=== PATIENT | male | born 1985 | race Hispanic/Latino ===

== ENCOUNTER 2025-07-28 04:28 | Inpatient (IN) | payer OTHER ==
[~2025-07-28] VITALS: Ht 170.2 cm; Wt 79.8 kg
[2025-07-28 04:49] LABS: IMMATURE GRANULOCYTE ABSOLUTE 0.07 K/uL (0-1); NUCLEATED RED BLOOD CELLS 0.0 % (0.0-0.19); PLATELET COUNT (AUTO) 290 K/uL (130-400); RED BLOOD CELL COUNT(AUTO) 5.22 MIL/uL (4.50-6.20); RED CELL DISTRIBUTION WIDTH 13.0 % (11.0-15.5); WHITE BLOOD COUNT (AUTO) 16.5 K/uL (4.8-10.8)
[2025-07-28] MEDS: 0.9%NACL 1000ML 1,000 ML IV SCH (04:51)
--- NOTE | 2025-07-28 04:54 | ERN ---
General Chief Complaint: Abdominal Pain Stated Complaint: ABDOMINAL PAIN S/P SURGERY Time Seen by MD: 04:30 History of Present Illness Initial Comments 40-year-old male history of hypertension, recent hernia repair here for evaluation of abdominal pain. Patient states that he was recently discharged from a leg travel total yesterday at 1:00 p.m.. He drove all the way to the [facility] and noted that he was having worsening abdominal pain for which he has been taking hydrocodone with a minimal relief of symptoms. Allergies: Coded Allergies: No Known Drug Allergies (Unverified Allergy, Unknown, 07/28/25) Past Medical History Past Medical History: High Cholesterol, Hypertension Past Surgical History: None Gastrointestinal/Abdominal: (+) abdominal pain Review of Systems: was completed, & the rest were negative. Physical Exam General Appearance: (+) no apparent distress Orientation: (+) alert, (+) oriented x 3 Eye: bilateral eye normal inspection, bilateral eye PERRL, bilateral eye EOMI Ear, Nose, Throat: (+) hearing grossly normal, (+) normal ENT inspection, (+) moist mucous membraine Neck: (+) normal inspection, (+) supple Respiratory: (+) chest non-tender, (+) lungs clear, (+) well ventilated Heart: (+) regular; (-) murmur Gastrointestinal: (+) soft, (+) distended, (+) tender Results Laboratory and Microbiology Lab and Micro Result Laboratory Tests Test 07/28/25 04:43 07/28/25 05:30 White Blood Count 16.5 K/uL (4.8-10.8) H Red Blood Count 5.22 MIL/uL (4.50-6.20) Hemoglobin 15.0 g/dL (14.0-18.0) Hematocrit 45.4 % (42-54) Mean Corpuscular Volume 87.0 fL (79-99) Mean Corpuscular Hemoglobin 28.7 pg (27.0-33.0) Mean Corpuscular Hemoglobin Concent 33.0 g/dL (32.0-36.0) Red Cell Distribution Width 13.0 % (11.0-15.5) Platelet Count 290 K/uL (130-400) Mean Platelet Volume 9.3 fL (7.5-10.5) Immature Granulocyte % (Auto) 0.4 % (0-1) Neutrophils (%) (Auto) 77.4 % (40.0-77.0) H Lymphocytes (%) (Auto) 12.2 % (21.0-51.0) L Monocytes (%) (Auto) 9.0 % (3.0-13.0) Eosinophils (%) (Auto) 0.7 % (0.0-8.0) Basophils (%) (Auto) 0.3 % (0.0-5.0) Neutrophils # (Auto) 12.8 K/uL (1.8-7.7) H Lymphocytes # (Auto) 2.0 K/uL (1.0-4.8) Monocytes # (Auto) 1.5 K/uL (0.1-1.0) H Eosinophils # (Auto) 0.11 K/uL (0.00-0.70) Basophils # (Auto) 0.05 K/uL (0.00-0.20) Absolute Immature Granulocyte (auto 0.07 K/uL (0-1) Nucleated Red Blood Cells 0.0 % (0.0-0.19) Sodium Level 137 mmol/L (136-145) Potassium Level 3.6 mmol/L (3.5-5.1) Chloride Level 98 mmol/L (101-111) L Carbon Dioxide Level 29 mmol/L (21-32) Blood Urea Nitrogen 7 mg/dL (7-18) Creatinine 0.9 mg/dL (0.5-1.3) Glomerular Filtration Rate Calc 111 mL/min (>90) Random Glucose 107 mg/dL (70-105) H Lactic Acid Level 1.3 mmol/L (0.8-2.5) Total Calcium 8.8 mg/dL (8.5-10.1) Total Bilirubin 0.6 mg/dL (0.2-1.0) Direct Bilirubin 0.1 mg/dL (0.0-0.3) Aspartate Amino Transf (AST/SGOT) 19 U/L (10-37) Alanine Aminotransferase (ALT/SGPT) 22 U/L (12-78) Alkaline Phosphatase 80 U/L (50-136) Total Creatine Kinase 220 U/L (21-232) # Total Protein 7.6 g/dL (6.0-8.3) Albumin 4.0 g/dL (3.5-5.0) Lipase 33 U/L (16-77) Serum Alcohol < 3 mg/dL (0-10) Urine Color COLORLESS (YELLOW) Urine Appearance CLEAR (CLEAR) Urine pH 6.5 (5.0-8.0) Urine Specific [place] 1.008 (1.001-1.031) Urine Protein NEGATIVE mg/dL (NEGATIVE) Urine Glucose (UA) NEGATIVE mg/dL (NEGATIVE) Urine Ketones NEGATIVE mg/dL (NEGATIVE) Urine Occult Blood NEGATIVE (NEGATIVE) Urine Nitrate NEGATIVE (NEGATIVE) Urine Bilirubin NEGATIVE mg/dL (NEGATIVE) Urine Urobilinogen 0.2 mg/dL (0.2-1.0) Urine Leukocyte Esterase NEGATIVE Jhoan/uL Labs Reviewed?: Yes EKG/XRAY/US/CT/MRI CT Scan Comment [place] [id number] [id number] IMAGING REPORT Signed PATIENT: JONATAN SAXENA MR#: [id number] : 1985 SEX: M AGE: 40 LOCATION: [facility] ORDER 4 STATUS: [facility] REPORT#: [id number] SERVICE 2 REASON: dc'd at outside hospital s/p 'hernia removal'. Exxtreme abd pain ORDERING PHYSICIAN: PETER URENA MD PROCEDURE: ABD PEL W - CT ABDOMEN/PELVIS W/CONTRAST EXAM: CT Abdomen and Pelvis with IV contrast CLINICAL HISTORY: Discharged from outside hospital status post hernia removal with extreme abdominal pain. TECHNIQUE: Axial computed tomography images of the abdomen and pelvis with intravenous contrast. CONTRAST: with intravenous contrast. COMPARISON: None provided. FINDINGS: LUNG BASES: The lung bases appear clear. No pleural effusions are seen. LIVER: Unremarkable except for mild fatty infiltration of the liver. GALLBLADDER AND BILE DUCTS: The gallbladder appears within normal limits. No radioopaque gallstones are seen. No biliary ductal dilatation is evident. PANCREAS: Unremarkable. SPLEEN: Unremarkable. ADRENAL GLANDS: Unremarkable. KIDNEYS, URETERS, AND BLADDER: Few bilateral renal cysts, the largest measuring 0.8 cm at the upper pole of the right kidney and 0.5 cm at the upper pole of the left kidney. There is no hydronephrosis or hydroureter. No urinary calculi are seen. STOMACH AND BOWEL: The ascending colon and transverse colon are dilated with a maximum diameter of approximately 7 cm. No evidence of any distal obstruction noted. No evidence of bowel obstruction. No evidence suggesting enteritis or colitis. APPENDIX: No evidence of acute appendicitis on CT examination. PERITONEUM: No free fluid. No free air. LYMPH NODES: No lymphadenopathy is evident. REPRODUCTIVE: Unremarkable as visualized. VASCULATURE: No evidence of abdominal aortic aneurysm. BONES: No aggressive appearing osseous lesion. No acute osseous pathology evident. INGUINAL CANAL: Mild fat inflammation and multiple tiny air foci in the right inguinal canal are consistent with postoperative changes. IMPRESSION: Dilated ascending and transverse colon measuring up to 7 cm without evidence of distal obstruction. Probably secondary to ileus. Mild fat inflammation and multiple tiny air foci in the right inguinal canal are consistent with postoperative changes. A few bilateral renal cysts, the largest 0.8 cm at the upper pole of the right kidney. /[place] DICTATED BY: BARBIE PINEDA Jr., MD DATE: 07/28/25754 ELECTRONICALLY SIGNED BY: BARBIE PINEDA Jr., MD DATE: 07/28/25754 [facility] MDM: Differential diagnosis: Ileus , abdominal pain Rationale: Tests considered and ordered secondary to shared decision making include: Previous outside records reviewed: Old ER visits. Risk of complication and/or morbidity or mortality of patient management: None Medications-Per medication reconciliation Need for hospitalization: Patient does meet criteria for hospitalization. Need for emergency major/minor surgery: No There are no social concerns with this patient. Prescription drug management Prescriptions will include symptomatic care Patient's prior external medical records from other ER visits were reviewed by me as indicated. Prior testing and results from previous visits were reviewed. Prior tests were taken into account with medical decision making and resource utilization, independent historian/historians were used to obtain complete medical history. I independently interpreted the test that were performed, results were reviewed by me and considered findings on radiology if ordered. Medical management and examination interpretation discussions were had by me with other qualified healthcare professionals as indicated for the patient's care. . Patient will be admitted under the care of hospitalist group ED Course Orders Procedure Category Date Status Time Ct Abdomen/Pelvis CT 07/28/25 Resulted W/Contrast 04:33 Basic Metabolic Panel LAB 07/28/25 Complete 04:33 Cbc With Differential LAB 07/28/25 Complete 04:33 Creatine Kinase, Total LAB 07/28/25 Complete 04:33 Hepatic Function Panel LAB 07/28/25 Complete 04:33 Lactic Acid LAB 07/28/25 Complete 04:33 0.9%Nacl 1000ml (Ns PHA 07/28/25 Complete 1000ml) 05:00 Morphine 4mg Syg PHA 07/28/25 Complete (Morphine 4mg Syg) 05:00 Urinalysis Profile LAB 07/28/25 Complete 05:32 Lipase LAB 07/28/25 Complete 06:46 Alcohol, Blood LAB 07/28/25 Complete 06:46 Current Medications Medications (Trade) Dose Ordered Sig/Reyna Route PRN Reason Start Time Stop Time Status Last Admin Dose Admin Morphine Sulfate (morPHINE 4MG SYG) 4 mg ONCE ONCE IVP 07/28/25 05:00 07/28/25 05:01 DC 07/28/25 04:51 Sodium Chloride 1,000 ml @ 0 mls/hr Q0M IV 07/28/25 05:00 07/28/25 06:35 DC 07/28/25 04:51 Vital Signs Date Time Temp Pulse Resp B/P (MAP) Pulse Ox O2 Delivery O2 Flow Rate FiO2 07/28/25 07:04 73 18 123/69 100 Room Air* 0 07/28/25 06:29 77 18 157/102 100 Room Air* 0 07/28/25 04:54 99 19 124/83 98 Room Air* 0 07/28/25 04:30 98.1 100 20 130/91 100 Room Air 0 DX & DISP Disposition: Inpatient Decision to Admit Time: 07:32 Departure Impression: Primary Impression: Ileus following gastrointestinal surgery Condition: Stable Referrals: SELF,REFERRAL (PCP) PETER URENA MD Jul 28, 2025 04:54 OSIRIS SMITH MD Jul 28, 2025 07:19
[2025-07-28 05:01] LABS: CREATININE 0.9 mg/dL (0.5-1.3); GLOMERULAR FILTR. RATE CALC 111.0 mL/min (>90); GLUCOSE,RANDOM 107.0 mg/dL (70-105); SODIUM SERUM 137.0 mmol/L (136-145); UREA NITROGEN, BLOOD 7.0 mg/dL (7-18)
[2025-07-28 05:05] LABS: ASPARTATE AMINOTRANSFERASE 19.0 U/L (10-37); CREATINE KINASE, TOTAL 220.0 U/L (21-232); TOTAL PROTEIN, SERUM 7.6 g/dL (6.0-8.3)
[2025-07-28 05:37] LABS: APPEARANCE,URINE CLEAR (CLEAR); GLUCOSE, URINE (UA) NEGATIVE (NEGATIVE); LEUKOCYTE ESTERASE ,URINE NEGATIVE Leu/uL (NEGATIVE); NITRATE,URINE NEGATIVE (NEGATIVE); OCCULT BLOOD,URINE NEGATIVE (NEGATIVE)
[2025-07-28 05:47] LABS: ADD UA MICROSCOPIC NO
--- NOTE | 2025-07-28 06:56 | HMCIMG ---
EXAM: CT Abdomen and Pelvis with IV contrast CLINICAL HISTORY: Discharged from outside hospital status post hernia removal with extreme abdominal pain. TECHNIQUE: Axial computed tomography images of the abdomen and pelvis with intravenous contrast. CONTRAST: with intravenous contrast. COMPARISON: None provided. FINDINGS: LUNG BASES: The lung bases appear clear. No pleural effusions are seen. LIVER: Unremarkable except for mild fatty infiltration of the liver. GALLBLADDER AND BILE DUCTS: The gallbladder appears within normal limits. No radioopaque gallstones are seen. No biliary ductal dilatation is evident. PANCREAS: Unremarkable. SPLEEN: Unremarkable. ADRENAL GLANDS: Unremarkable. KIDNEYS, URETERS, AND BLADDER: Few bilateral renal cysts, the largest measuring 0.8 cm at the upper pole of the right kidney and 0.5 cm at the upper pole of the left kidney. There is no hydronephrosis or hydroureter. No urinary calculi are seen. STOMACH AND BOWEL: The ascending colon and transverse colon are dilated with a maximum diameter of approximately 7 cm. No evidence of any distal obstruction noted. No evidence of bowel obstruction. No evidence suggesting enteritis or colitis. APPENDIX: No evidence of acute appendicitis on CT examination. PERITONEUM: No free fluid. No free air. LYMPH NODES: No lymphadenopathy is evident. REPRODUCTIVE: Unremarkable as visualized. VASCULATURE: No evidence of abdominal aortic aneurysm. BONES: No aggressive appearing osseous lesion. No acute osseous pathology evident. INGUINAL CANAL: Mild fat inflammation and multiple tiny air foci in the right inguinal canal are consistent with postoperative changes. IMPRESSION: Dilated ascending and transverse colon measuring up to 7 cm without evidence of distal obstruction. Probably secondary to ileus. Mild fat inflammation and multiple tiny air foci in the right inguinal canal are consistent with postoperative changes. A few bilateral renal cysts, the largest 0.8 cm at the upper pole of the right kidney. /[place]
[2025-07-28 07:07] LABS: ALCOHOL, BLOOD < 3 mg/dL (0-10)
--- NOTE | 2025-07-28 07:20 | NUR ---
ASSUMED CARED AT THIS TIME
[2025-07-28] MEDS: LACTATED RINGERS 1000ML 1,000 ML IV ONE (08:15)
[2025-07-28] MEDS: ZOSYN 3.375GM +NS 50ML IV SCH (09:05)
[2025-07-28] MEDS: LACTATED RINGERS 1000ML 1,000 ML IV SCH (09:05)
--- NOTE | 2025-07-28 09:09 | HP ---
[facility] HISTORY AND PHYSICAL Date of Service: Jul 28, 2025 Time of Service: 08:57 HISTORY OF PRESENT ILLNESS: [40-year-old male with a history of hypertension and hyperlipidemia, presenting with worsening abdominal pain following recent right inguinal hernia repair (discharged from outside hospital yesterday at 1:00 p.m.). He reports progressive abdominal pain during a long car ride home, minimally relieved by hydrocodone. No associated nausea, vomiting, or changes in bowel habits reported at presentation. ] ED Course: Received 1L IV fluids (LR) Analgesia: Dilaudid 0.5 mg x2, Morphine 4 mg x1, with some improvement in pain Labs and imaging as above Referred to hospitalist for further evaluation and management. REVIEW OF SYSTEMS CONSTITUTIONAL: Denies fevers, chills, or night sweats. No unintentional weight loss reported. NEUROLOGICAL: Denies headache, amaurosis fugax, motor weakness, sensory deficit, vertigo/spinning sensation, gait abnormalities, or tremors. ENT: No hearing loss, otalgia, otorrhea, rhinitis, rhinorrhea, hoarseness, or sore throat. CARDIOVASCULAR: Denies any exertional angina, dyspnea on exertion, orthopnea, paroxysmal nocturnal dyspnea, palpitations, life-threatening arrhythmias, claudication. PULMONARY: Denies any shortness of breath, cough, phlegm/sputum, hemoptysis, pleuritic chest pain. SLEEP: Denies morning headaches, daytime somnolence or napping. Denies difficulty falling asleep, staying asleep, waking from sleep. Denies knowledge of snoring. GASTROINTESTINAL: Positive for abdominal pain; no nausea, vomiting, diarrhea, or constipation reported GENITOURINARY: Denies frequency, urgency, nocturia, hematuria or incontinence (Storage/Irritative symptoms.) Low urinary stream, straining to void, urinary intermittency or hesitancy, splitting of the voiding stream, terminal dribbling. ENDOCRINOLOGIC: Denies polyuria, polydipsia, polyphagia or heat/cold intolerances. HEMATOLOGIC: Denies thrombophilia/previous clots, or coagulopathy/bleeding disorders. ONCOLOGIC: Denies personal history of malignancy. DERMATOLOGIC: Denies rashes or pruritus. PSYCHIATRIC: Denies any suicidal or homicidal ideation. Denies hallucinations. PAST MEDICAL HISTORY: [Hypertension Hyperlipidemia ] PAST SURGICAL HISTORY: [Recent right inguinal hernia repair ] PAST SOCIAL HISTORY: [Lives in [facility], only in [place] to visit his parents. Denies tobacco etoh, and illicit drug use ] FAMILY HISTORY: [Noncontributory ] Coded Allergies: No Known Drug Allergies (Unverified Allergy, Unknown, 07/28/25) PHYSICAL EXAM GENERAL APPEARANCE: No acute distress, alert, oriented x3 NEUROLOGICAL: Cranial nerves II-XII grossly intact. Motor is 5/5 in bilateral upper and lower extremities proximal to distal. No sensory deficits. HEENT: Face is symmetric. Pupils are equal and reactive. Extraocular movements are intact. NECK: Supple. No JVD. No thyromegaly. No submental, submandibular, pre- /postauricular, occipital or supraclavicular lymphadenopathy. CHEST: Normal chest expansion. No Telemetry. LUNGS: Absence of any rales, rhonchi or any wheezing. CARDIOVASCULAR: Regular. S1 and S2 normal. No appreciable rubs, murmurs or gallops. ABDOMEN: Soft, distended, tender; no peritoneal signs : Deferred. No Taylor. EXTREMITIES: Non-edematous and not cyanotic. No clubbing. Good capillary refill. SKIN: No skin breakdown. Vital Sign (Last 24 Hours) 07/28/25 07/28/25 04:30 07:04 Temp 98.1 Pulse 73 Resp 18 B/P (MAP) 123/69 Pulse Ox 100 O2 Delivery Room Air* O2 Flow Rate 0 FiO2 21 LABS: Laboratory: Test 07/28/25 05:30 07/28/25 04:43 Range/Units Urine Color COLORLESS YELLOW Urine Appearance CLEAR CLEAR Urine pH 6.5 5.0-8.0 Urine Specific [place] 1.008 1.001-1.031 Urine Protein NEGATIVE NEGATIVE mg/dL Urine Glucose (UA) NEGATIVE NEGATIVE mg/dL Urine Ketones NEGATIVE NEGATIVE mg/dL Urine Occult Blood NEGATIVE NEGATIVE Urine Nitrate NEGATIVE NEGATIVE Urine Bilirubin NEGATIVE NEGATIVE mg/dL Urine Urobilinogen 0.2 0.2-1.0 mg/dL Urine Leukocyte Esterase NEGATIVE NEGATIVE Jhoan/uL White Blood Count 16.5 H 4.8-10.8 K/uL Red Blood Count 5.22 4.50-6.20 MIL/uL Hemoglobin 15.0 14.0-18.0 g/dL Hematocrit 45.4 42-54 % Mean Corpuscular Volume 87.0 79-99 fL Mean Corpuscular Hemoglobin 28.7 27.0-33.0 pg Mean Corpuscular Hemoglobin Concent 33.0 32.0-36.0 g/dL Red Cell Distribution Width 13.0 11.0-15.5 % Platelet Count 290 130-400 K/uL Mean Platelet Volume 9.3 7.5-10.5 fL Immature Granulocyte % (Auto) 0.4 0-1 % Neutrophils (%) (Auto) 77.4 H 40.0-77.0 % Lymphocytes (%) (Auto) 12.2 L 21.0-51.0 % Monocytes (%) (Auto) 9.0 3.0-13.0 % Eosinophils (%) (Auto) 0.7 0.0-8.0 % Basophils (%) (Auto) 0.3 0.0-5.0 % Neutrophils # (Auto) 12.8 H 1.8-7.7 K/uL Lymphocytes # (Auto) 2.0 1.0-4.8 K/uL Monocytes # (Auto) 1.5 H 0.1-1.0 K/uL Eosinophils # (Auto) 0.11 0.00-0.70 K/uL Basophils # (Auto) 0.05 0.00-0.20 K/uL Absolute Immature Granulocyte (auto 0.07 0-1 K/uL Nucleated Red Blood Cells 0.0 0.0-0.19 % Sodium Level 137 136-145 mmol/L Potassium Level 3.6 3.5-5.1 mmol/L Chloride Level 98 L 101-111 mmol/L Carbon Dioxide Level 29 21-32 mmol/L Blood Urea Nitrogen 7 7-18 mg/dL Creatinine 0.9 0.5-1.3 mg/dL Glomerular Filtration Rate Calc 111 >90 mL/min Random Glucose 107 H 70-105 mg/dL Lactic Acid Level 1.3 0.8-2.5 mmol/L Total Calcium 8.8 8.5-10.1 mg/dL Total Bilirubin 0.6 0.2-1.0 mg/dL Direct Bilirubin 0.1 0.0-0.3 mg/dL Aspartate Amino Transf (AST/SGOT) 19 10-37 U/L Alanine Aminotransferase (ALT/SGPT) 22 12-78 U/L Alkaline Phosphatase 80 50-136 U/L Total Creatine Kinase 220 # 21-232 U/L Total Protein 7.6 6.0-8.3 g/dL Albumin 4.0 3.5-5.0 g/dL Lipase 33 16-77 U/L Serum Alcohol < 3 0-10 mg/dL Current Medications Medications (Trade) Dose Ordered Sig/Reyna Route PRN Reason Start Time Stop Time Status Last Admin Dose Admin Acetaminophen (Tylenol 325mg Suppository) 325 mg Q4H PRN RC TEMPERATURE GREATER THAN 101.5 07/28/25 09:00 08/27/25 08:59 UNV Acetaminophen (Tylenol 325mg Suppository) 325 mg Q6H PRN RC MILD PAIN (1-3) 07/28/25 09:00 08/27/25 08:59 UNV Ketorolac Tromethamine (toRADol) 15 mg Q6H PRN IV MODERATE PAIN (4-6) 07/28/25 09:00 08/02/25 08:59 UNV Lactated Ringer's 1,000 ml @ 100 mls/hr Q10H IV 07/28/25 09:00 08/27/25 08:59 UNV Morphine Sulfate (morPHINE 2MG SYG) 2 mg Q4H PRN IVP SEVERE PAIN (7-10) 07/28/25 09:00 08/04/25 08:59 UNV Ondansetron HCl (zoFRAN 4MG INJ) 4 mg Q6H PRN IVP NAUSEA/VOMITING 07/28/25 09:00 08/27/25 08:59 UNV Piperacillin Sod/ Tazobactam Sod (Zosyn 3.375gm+NS 50ml) 3.375 gm Q8H IV 07/28/25 09:00 08/07/25 08:59 UNV Sodium Chloride 1,000 ml @ 0 mls/hr Q0M IV 07/28/25 05:00 07/28/25 06:35 DC 07/28/25 04:51 300 MLS/HR DIAGNOSTICS / RADIOLOGY: [ CT Abdomen/Pelvis with IV contrast: Dilated ascending and transverse colon up to 7 cm, no evidence of distal obstructionfindings consistent with ileus. Mild fat stranding and tiny air foci in right inguinal canalpostoperative changes. No free air or fluid, no evidence of bowel perforation or abscess. Few small bilateral renal cysts. ] ASSESSMENT: [40-year-old male, s/p recent right inguinal hernia repair, presenting with acute abdominal pain and distension. Imaging reveals significant colonic dilation (up to 7 cm) without evidence of mechanical obstruction, consistent with postoperative ileus. No evidence of perforation, abscess, or ischemia. Leukocytosis with left shift, but no lactic acidosis. Mild postoperative inflammatory changes in the right inguinal canal. Problem list: Postoperative ileus, POA Intractable abdominal pain, POA Leukocytosis with left shift, POA Recent right inguinal hernia repair (postoperative state), POA Hypertension Hyperlipidemia Mild fatty liver by CT a/p, POA Bilateral renal cysts by CT A/P POA Mild hypochloremia Mild hyperglycemia ] PLAN: [Admit for monitoring and supportive management of postoperative ileus NPO, IV fluids, electrolyte repletion as needed Serial abdominal exams and monitoring for signs of worsening obstruction or perforation Pain control (avoid excessive opioids if possible) Early mobilization as tolerated Monitor labs, including WBC and electrolytes Surgical consult if clinical deterioration or concern for mechanical obstruction/perforation (we will also reach out to patient's surgeon from out of state) Continue home antihypertensives as appropriate Update social history and medication reconciliation on admission ] Supportive care: GI and DVT prophylaxis, daily labs KUB tomorrow morning Full code Case discussed with Dr. Debbie gallardo, above plan was formulated ADVANCED CARE PLANNING 1. Which of the following were discussed? Hospice Care - Yes / No Therapeutic options - Yes / No Advance Directives - Yes / No Other discussions - 2. Discussed with who? Patient 3. Voluntary nature of this service was explained to the patient? Yes / No 4. Amount of time spent - __20 mins 5. Reviewed by Physician? (if this service was performed by NPP) Yes / No ATTESTATION BY PHYSICIAN I have seen and examined the patient. I reviewed the documentation, medical decision making, and treatment plan as noted by the mid-level provider above. I agree with the findings and plan of care. FLORINA HART MD, JANICE B [facility] Jul 28, 2025 09:09
[2025-07-28 10:30] VITALS: BP 133/89; PULSE 72; RESP 21; TEMP 97.7
[2025-07-28 16:00] VITALS: BP 137/74; PULSE 67; RESP 17; TEMP 97.9
[2025-07-28 16:17] VITALS: O2SAT 100
[2025-07-28 20:18] VITALS: BP 134/97; PULSE 68; RESP 18; TEMP 97.3
[2025-07-29 00:18] VITALS: BP 131/80; PULSE 62; RESP 18; TEMP 98.7
[2025-07-29 04:15] VITALS: BP 131/82; PULSE 60; RESP 18; TEMP 97.8
[2025-07-29 04:26] LABS: NUCLEATED RED BLOOD CELLS 0.0 % (0.0-0.19); PLATELET COUNT (AUTO) 303.0 K/uL (130-400); RED BLOOD CELL COUNT(AUTO) 5.17 MIL/uL (4.50-6.20); RED CELL DISTRIBUTION WIDTH 13.0 % (11.0-15.5); WHITE BLOOD COUNT (AUTO) 8.7 K/uL (4.8-10.8)
[2025-07-29 04:46] LABS: ASPARTATE AMINOTRANSFERASE 14.0 U/L (10-37); CREATININE 0.9 mg/dL (0.5-1.3); GLOMERULAR FILTR. RATE CALC 111.0 mL/min (>90); GLUCOSE,RANDOM 93.0 mg/dL (70-105); SODIUM SERUM 140.0 mmol/L (136-145); TOTAL PROTEIN, SERUM 7.4 g/dL (6.0-8.3); UREA NITROGEN, BLOOD 11.0 mg/dL (7-18)
[2025-07-29 08:00] VITALS: BP 131/85; PULSE 65; RESP 21; TEMP 97.8; O2SAT 100
--- NOTE | 2025-07-29 11:03 | NUR ---
PT. STATES "I HAVEN'T EATEN, I WANT TO LEAVE HERE AND GO BACK TO [place]". INFORMED PATIENT THAT HE IS ABLE TO LEAVE, HOWEVER, THAT IT WOULD BE CONSIDERED AGAINST MEDICAL ADVICE, VERBALIZED UNDERSTANDING. PT'S FAMILY ASKED TO SPEAK WITH CHARGE NURSE. INFORMED BRUNO JAY.
[2025-07-29 12:00] VITALS: BP 127/88; PULSE 64; RESP 19; TEMP 98.1
--- NOTE | 2025-07-29 14:33 | PN ---
[facility] PROGRESS NOTE Date of Service: Jul 29, 2025 Time of Service: 14:28 SUBJECTIVE: [This is a 40-year-old male, postoperative day 5-6 from right inguinal hernia repair, presenting with acute postoperative ileus and intractable abdominal pain. He is hemodynamically stable, with imaging and labs consistent with ileus and no evidence of mechanical obstruction, perforation, or sepsis. Management is supportive with NPO, IV fluids, electrolyte monitoring, pain control, early mobilization, and serial exams. Surgical input is being obtained. Continue to monitor closely for clinical changes. ] REVIEW OF SYSTEMS CONSTITUTIONAL: Denies fevers, chills, or night sweats. No unintentional weight loss reported. NEUROLOGICAL: Denies headache, amaurosis fugax, motor weakness, sensory deficit, vertigo/spinning sensation, gait abnormalities, or tremors. ENT: No hearing loss, otalgia, otorrhea, rhinitis, rhinorrhea, hoarseness, or sore throat. CARDIOVASCULAR: Denies any exertional angina, dyspnea on exertion, orthopnea, paroxysmal nocturnal dyspnea, palpitations, life-threatening arrhythmias, claudication. PULMONARY: Denies any shortness of breath, cough, phlegm/sputum, hemoptysis, pleuritic chest pain. SLEEP: Denies morning headaches, daytime somnolence or napping. Denies difficulty falling asleep, staying asleep, waking from sleep. Denies knowledge of snoring. GASTROINTESTINAL: Positive for abdominal pain; no nausea, vomiting, diarrhea, or constipation reported GENITOURINARY: Denies frequency, urgency, nocturia, hematuria or incontinence (Storage/Irritative symptoms.) Low urinary stream, straining to void, urinary intermittency or hesitancy, splitting of the voiding stream, terminal dribbling. ENDOCRINOLOGIC: Denies polyuria, polydipsia, polyphagia or heat/cold intolerances. HEMATOLOGIC: Denies thrombophilia/previous clots, or coagulopathy/bleeding disorders. ONCOLOGIC: Denies personal history of malignancy. DERMATOLOGIC: Denies rashes or pruritus. PSYCHIATRIC: Denies any suicidal or homicidal ideation. Denies hallucinations. PHYSICAL EXAM GENERAL APPEARANCE: No acute distress, alert, oriented x3 NEUROLOGICAL: Cranial nerves II-XII grossly intact. Motor is 5/5 in bilateral upper and lower extremities proximal to distal. No sensory deficits. HEENT: Face is symmetric. Pupils are equal and reactive. Extraocular movements are intact. NECK: Supple. No JVD. No thyromegaly. No submental, submandibular, pre- /postauricular, occipital or supraclavicular lymphadenopathy. CHEST: Normal chest expansion. No Telemetry. LUNGS: Absence of any rales, rhonchi or any wheezing. CARDIOVASCULAR: Regular. S1 and S2 normal. No appreciable rubs, murmurs or gallops. ABDOMEN: Soft, distended, tender; no peritoneal signs : Deferred. No Taylor. EXTREMITIES: Non-edematous and not cyanotic. No clubbing. Good capillary refill. SKIN: No skin breakdown. Vital Signs (last 8hr) Date Time Temp Pulse Resp B/P (MAP) Pulse Ox O2 Delivery O2 Flow Rate FiO2 07/29/25 12:00 98.1 64 19 127/88 96 Room Air 07/29/25 08:00 97.9 65 21 131/85 100 Room Air LABS: Laboratory: Test 07/29/25 04:17 07/28/25 20:48 07/28/25 05:30 07/28/25 04:43 Range/Units White Blood Count 8.7 # 4.8-10.8 K/uL Red Blood Count 5.17 4.50-6.20 MIL/uL Hemoglobin 15.0 14.0-18.0 g/dL Hematocrit 45.0 42-54 % Mean Corpuscular Volume 87.0 79-99 fL Mean Corpuscular Hemoglobin 29.0 27.0-33.0 pg Mean Corpuscular Hemoglobin Concent 33.3 32.0-36.0 g/dL Red Cell Distribution Width 13.0 11.0-15.5 % Platelet Count 303 130-400 K/uL Mean Platelet Volume 9.5 7.5-10.5 fL Nucleated Red Blood Cells 0.0 0.0-0.19 % Sodium Level 140 136-145 mmol/L Potassium Level 4.0 3.5-5.1 mmol/L Chloride Level 103 101-111 mmol/L Carbon Dioxide Level 29 21-32 mmol/L Blood Urea Nitrogen 11 7-18 mg/dL Creatinine 0.9 0.5-1.3 mg/dL Glomerular Filtration Rate Calc 111 >90 mL/min Random Glucose 93 70-105 mg/dL Total Calcium 9.0 8.5-10.1 mg/dL Magnesium Level 2.20 1.80-2.40 mg/dL Total Bilirubin 1.0 # 0.2-1.0 mg/dL Aspartate Amino Transf (AST/SGOT) 14 10-37 U/L Alanine Aminotransferase (ALT/SGPT) 19 12-78 U/L Alkaline Phosphatase 74 50-136 U/L Total Protein 7.4 6.0-8.3 g/dL Albumin 3.3 L 3.5-5.0 g/dL Whole Blood Glucose 96 70-110 MG/DL Urine Color COLORLESS YELLOW Urine Appearance CLEAR CLEAR Urine pH 6.5 5.0-8.0 Urine Specific [place] 1.008 1.001-1.031 Urine Protein NEGATIVE NEGATIVE mg/dL Urine Glucose (UA) NEGATIVE NEGATIVE mg/dL Urine Ketones NEGATIVE NEGATIVE mg/dL Urine Occult Blood NEGATIVE NEGATIVE Urine Nitrate NEGATIVE NEGATIVE Urine Bilirubin NEGATIVE NEGATIVE mg/dL Urine Urobilinogen 0.2 0.2-1.0 mg/dL Urine Leukocyte Esterase NEGATIVE NEGATIVE Jhoan/uL Immature Granulocyte % (Auto) 0.4 0-1 % Neutrophils (%) (Auto) 77.4 H 40.0-77.0 % Lymphocytes (%) (Auto) 12.2 L 21.0-51.0 % Monocytes (%) (Auto) 9.0 3.0-13.0 % Eosinophils (%) (Auto) 0.7 0.0-8.0 % Basophils (%) (Auto) 0.3 0.0-5.0 % Neutrophils # (Auto) 12.8 H 1.8-7.7 K/uL Lymphocytes # (Auto) 2.0 1.0-4.8 K/uL Monocytes # (Auto) 1.5 H 0.1-1.0 K/uL Eosinophils # (Auto) 0.11 0.00-0.70 K/uL Basophils # (Auto) 0.05 0.00-0.20 K/uL Absolute Immature Granulocyte (auto 0.07 0-1 K/uL Lactic Acid Level 1.3 0.8-2.5 mmol/L Direct Bilirubin 0.1 0.0-0.3 mg/dL Total Creatine Kinase 220 # 21-232 U/L Lipase 33 16-77 U/L Serum Alcohol < 3 0-10 mg/dL Current Medications Medications (Trade) Dose Ordered Sig/Reyna Route PRN Reason Start Time Stop Time Status Last Admin Dose Admin Acetaminophen (Tylenol 325mg Suppository) 325 mg Q4H PRN RC TEMPERATURE GREATER THAN 101.5 07/28/25 09:00 08/27/25 08:59 Acetaminophen (Tylenol 325mg Suppository) 325 mg Q6H PRN RC MILD PAIN (1-3) 07/28/25 09:00 08/27/25 08:59 Hydralazine HCl (APRESOLine 20MG INJ) 10 mg Q6H PRN IV ADMINISTER FOR SBP > 160 07/28/25 09:30 08/27/25 09:29 Ketorolac Tromethamine (toRADol) 15 mg Q6H PRN IV MODERATE PAIN (4-6) 07/28/25 09:00 08/02/25 08:59 07/29/25 02:25 15 MG Lactated Ringer's 1,000 ml @ 100 mls/hr Q10H IV 07/28/25 09:00 08/27/25 08:59 07/29/25 06:37 100 MLS/HR Morphine Sulfate (morPHINE 2MG SYG) 2 mg Q4H PRN IVP SEVERE PAIN (7-10) 07/28/25 09:00 08/04/25 08:59 07/29/25 08:25 2 MG Ondansetron HCl (zoFRAN 4MG INJ) 4 mg Q6H PRN IVP NAUSEA/VOMITING 07/28/25 09:00 08/27/25 08:59 07/28/25 11:44 4 MG Piperacillin Sod/ Tazobactam Sod (Zosyn 3.375gm+NS 50ml) 3.375 gm Q8H IV 07/28/25 09:00 08/07/25 08:59 07/29/25 08:25 3.375 GM Sodium Chloride 1,000 ml @ 0 mls/hr Q0M IV 07/28/25 05:00 07/28/25 06:35 DC 07/28/25 04:51 300 MLS/HR DIAGNOSTICS / RADIOLOGY: [ ] ASSESSMENT: [Assessment 1. Postoperative Ileus (POA): - The patient is a 40-year-old male, s/p right inguinal hernia repair, presenting with acute abdominal pain and distension. - CT A/P shows significant colonic dilation (up to 7 cm) without evidence of mechanical obstruction, perforation, or abscessfindings consistent with postoperative ileus. - No lactic acidosis, but notable leukocytosis with left shift (WBC 16.5, neutrophils 77.4%, absolute neutrophils 12.8). - Mild postoperative inflammatory changes in the right inguinal canal, likely expected post-surgical findings. - No bowel movement, but patient is passing flatus, which is reassuring for some distal transit. 2. Intractable Abdominal Pain (POA): - Persistent, severe abdominal pain requiring multiple doses of IV opioids in the ED and ongoing pain on the floor. - Pain is likely multifactorial: postoperative state, ileus, and colonic distension. 3. Leukocytosis with Left Shift (POA): - Likely reactive due to recent surgery and ongoing ileus. No evidence of sepsis or intra-abdominal catastrophe at this time (afebrile, hemodynamically stable, no peritoneal signs, normal lactate). 4. Recent Right Inguinal Hernia Repair (POA): - Postoperative day 5-6, with expected local inflammatory changes on imaging. 5. Hypertension, Hyperlipidemia: - Chronic, stable. 6. Mild Fatty Liver, Bilateral Renal Cysts (Incidental): - No acute management needed. 7. Mild Hypochloremia, Mild Hyperglycemia: - Likely stress response and/or related to IV fluids and NPO status. PLAN: 1. Supportive Management of Postoperative Ileus: - NPO: Continue NPO status until evidence of bowel function returns (BM or significant flatus, decreased distension, improved pain). - IV Fluids: Continue maintenance IV fluids (NS), monitor for electrolyte imbalances and replete as needed. - Electrolyte Repletion: Monitor and correct as indicated (especially K, Mg, Cl). - Serial Abdominal Exams: Monitor for signs of clinical deterioration (worsening pain, peritoneal signs, fever, tachycardia, hypotension). - Early Mobilization: Encourage ambulation at least TID to promote return of bowel function. - Bowel Rest: Avoid oral intake until ileus resolves. 2. Pain Control: - Minimize opioid use as much as possible (opioids can worsen ileus). - Utilize multimodal analgesia: scheduled acetaminophen, consider low-dose ketorolac if renal function allows, and non-pharmacologic measures (repositioning, heat packs). - [place] IV opioids for severe breakthrough pain only. 3. Monitoring and Diagnostics: - Labs: Daily CBC, BMP to monitor for leukocytosis, electrolyte derangements. - Imaging: KUB (abdominal x-ray) pendingreview when available to assess for interval changes in colonic dilation or new findings. - Monitor for Complications: Watch for signs of bowel perforation, ischemia, or sepsis (worsening pain, fever, tachycardia, hypotension, peritoneal signs). 4. Consults: - General Surgery: Consult Dr. Du (on-call general surgeon) for recommendations and ongoing surgical input. - Contact Outside Surgeon: Continue attempts to reach the original operating surgeon for additional context and recommendations. 5. DVT and GI Prophylaxis: - Initiate DVT prophylaxis (e.g., SQ heparin or enoxaparin if not contraindicated). - GI prophylaxis (e.g., PPI or H2 franco) while NPO and on stress-dose steroids or for ulcer risk. 6. Home Medications: - Resume antihypertensives as appropriate once oral intake is possible. - Continue to review and reconcile home medications. 7. Patient Education and Communication: - Update patient and family on diagnosis, expected course, and warning signs for deterioration. - Document advanced care planning discussions as completed. 8. Disposition: - Continue inpatient monitoring until resolution of ileus (return of bowel function, tolerating oral intake, pain controlled on oral meds). - Discharge planning once stable. If KUB shows worsening colonic dilation or new findings, or if the patient develops peritoneal signs, fever, or hemodynamic instability, escalate to surgical intervention and consider transfer to higher level of care if needed. ATTESTATION BY PHYSICIAN I have seen and examined the patient. I reviewed the documentation, medical decision making, and treatment plan as noted by the mid-level provider above. I agree with the findings and plan of care. FLORINA HART MD, [facility] Jul 29, 2025 14:33
--- NOTE | 2025-07-29 15:30 | CONS ---
CONSULT NOTE: Consulting physician:Dr Taveras Consulting service: General surgery Reason for consultation: Postoperative ileus History of present illness: This is a 40-year-old male consulted to surgery after presenting to the hospital with concerns of abdominal pain in the right inguinal region. Patient with recent right inguinal hernia repair two days prior at 1:00 p.m.. Because patient was told he was no longer allowed to work for the next month he drove from [facility] to visit family. Upon presentation to the hospital imaging performed concerning for ileus. Patient has been reporting flatus. Patient also with small bowel movement. Patient currently on IV fluids and IV antibiotics but NPO. No reports of nausea or vomiting Medical history: Surgical history: Recent inguinal hernia surgery Review of systems: General: No Fever, No Chills, No Night Sweats, No Fatigue, No Malaise, No Appetite, No Other HEENT: No Head Aches, No Visual Changes, No Eye Pain, No Ear Pain, No Dysphasia, No Sinus Congestion, No Post Nasal Drip, No Sore Throat, No Other Pulmonary: No Dyspnea, No Cough, No Pleuritic Chest Pain, No Other Cardiovascular: No: Chest Pain, Palpitations, Orthopnea, Paroxysmal No Dyspnea, Edema, Lt Headedness, Other Gastrointestinal: No: Nausea, Vomiting, Diarrhea, Constipation, Melena, Hematochezia, Other Genitourinary: No Dysuria, No Frequency, No Incontinence, No Hematuria, No Retention, No Other Musculoskeletal: No: other, neck pain, shoulder pain, arm pain, back pain, hand pain, leg pain, foot pain Skin: No Urticaria, No Rash, No Other Neurological: No: Weakness, Numbness, Incoordination, Change in speech, Confusion, Seizures, Other Physical exam: General: Awake alert and oriented Heart: Regular rate and rhythm} Lungs: Clear to auscultation no distress Abdomen: [Soft, nontender, nondistended surgical site clean and dry Assessment: This is a 40-year-old male status post right inguinal hernia repair with postoperative ileus Plan: From surgical standpoint we will repeat KUB to compare from earlier KUB If no obstruction noted patient to be allowed clear liquids Patient encouraged to ambulate Recommendation is to avoid narcotics Surgical team to follow patient closely Nursing to report any further acute events Surgical case has been discussed with my supervising physician in the above plan was formulated and agreed upon Supervising physicians evaluation the patient be done within next 24 hours We appreciate the hospitalist team for us to participate in patient's care. Greater than 55 minutes of time spent patient, reviewing chart, working on documentation RICARDA DELACRUZ Jr. PAC Jul 29, 2025 15:30
[2025-07-29 16:00] VITALS: BP 127/80; PULSE 61; RESP 19; TEMP 98
[2025-07-29] MEDS: ENOXAPARIN SODIUM 40 MG/0.4 ML SYRINGE SQ ONE (16:23)
--- NOTE | 2025-07-29 16:31 | HMCIMG ---
EXAM: CR Abdomen, 2 View. CLINICAL HISTORY: Ileus COMPARISON: None provided. FINDINGS: BOWEL: The bowel gas pattern is within normal limits. PERITONEUM/SOFT TISSUES: No free air evident. No pathologic appearing calcification. BONES: No acute osseous abnormality. IMPRESSION: The bowel gas pattern is within normal limits. /[place]
--- NOTE | 2025-07-29 19:09 | NUR ---
cm note initial assessment met with pt and states lives alone, independent with adls/ambulation. no dme no home services. pt drives. states sister is next of kin . navneet valero. [phone]/father ronna ordaz, -[phone]. dc plan is home states no dc needs.
[2025-07-29 20:39] VITALS: BP 140/89; PULSE 66; RESP 18; TEMP 98.1
--- NOTE | 2025-07-29 23:51 | HMCIMG ---
EXAM: CR ABDOMEN, 1 VIEW CLINICAL HISTORY: Follow-up study of ileus. COMPARISON: Comparison to previous CT dated 07/28/2025. TECHNIQUE: Single frontal radiograph of the abdomen. FINDINGS: Bowel gas pattern: Interval regression of the previously noted bowel dilatation with still seen dilated colonic segments, mainly transverse colon, mostly related to ileus. Free air: Not assessed on a single supine view. Organomegaly: Not seen. Calcifications: No pathologic calcifications observed. Bones and soft tissues: Unremarkable. IMPRESSION: As compared to previous CT study: 1. Interval regression of previously noted bowel dilatation with persistent dilated colonic segments, mainly the transverse colon. 2. No evidence of mechanical bowel obstruction. /[place]
[2025-07-30 00:43] VITALS: BP 98/68; PULSE 78; RESP 18; TEMP 97.8
[2025-07-30 04:19] VITALS: BP 114/58; PULSE 57; RESP 18; TEMP 98.1
[2025-07-30 05:07] LABS: NUCLEATED RED BLOOD CELLS 0.0 % (0.0-0.19); PLATELET COUNT (AUTO) 315.0 K/uL (130-400); RED BLOOD CELL COUNT(AUTO) 5.52 MIL/uL (4.50-6.20); RED CELL DISTRIBUTION WIDTH 12.6 % (11.0-15.5); WHITE BLOOD COUNT (AUTO) 7.2 K/uL (4.8-10.8)
[2025-07-30 05:25] LABS: ASPARTATE AMINOTRANSFERASE 16.0 U/L (10-37); CREATININE 0.9 mg/dL (0.5-1.3); GLOMERULAR FILTR. RATE CALC 111.0 mL/min (>90); GLUCOSE,RANDOM 105.0 mg/dL (70-105); SODIUM SERUM 142.0 mmol/L (136-145); TOTAL PROTEIN, SERUM 7.4 g/dL (6.0-8.3); UREA NITROGEN, BLOOD 15.0 mg/dL (7-18)
[2025-07-30 08:00] VITALS: BP 132/97; PULSE 73; RESP 20; TEMP 97.6
[2025-07-30] MEDS: ENOXAPARIN SODIUM 40 MG/0.4 ML SYRINGE SQ SCH (08:57)
[2025-07-30 10:45] VITALS: O2SAT 95
--- NOTE | 2025-07-30 12:16 | DS ---
Discharge Summary Hospital Course Summary: The patient admitted to the hospital July 28, 2025 with the following history of the present illness: 40-year-old male with a history of hypertension and hyperlipidemia, presenting with worsening abdominal pain following recent right inguinal hernia repair (discharged from outside hospital yesterday at 1:00 p.m.). He reports progressive abdominal pain during a long car ride home, minimally relieved by hydrocodone. No associated nausea, vomiting, or changes in bowel habits reported at presentation. ED Course: Received 1L IV fluids (LR) Analgesia: Dilaudid 0.5 mg x2, Morphine 4 mg x1, with some improvement in pain Labs and imaging as above Referred to hospitalist for further evaluation and management. HOSPITAL COURSE 07/29 This is a 40-year-old male, postoperative day 5-6 from right inguinal hernia repair, presenting with acute postoperative ileus and intractable abdominal pain. He is hemodynamically stable, with imaging and labs consistent with ileus and no evidence of mechanical obstruction, perforation, or sepsis. Management is supportive with NPO, IV fluids, electrolyte monitoring, pain control, early mobilization, and serial exams. Surgical input is being obtained. Continue to monitor closely for clinical changes. ] 07/30 today the patient remains admitted to medical floor, hemodynamically stable, afebrile, saturating normal on room air, passing gas, moving bowel, tolerated diet. Denied chest pain, no shortness a breath, no nausea, no vomiting, no abdominal pain. Body Painter(s): General surgeon Assessment/Plan: Final diagnosis Assessment 1. Postoperative Ileus (POA): 2. Intractable Abdominal Pain (POA): 3. Leukocytosis with Left Shift (POA): 4. Recent Right Inguinal Hernia Repair (POA): 5. Hypertension, Hyperlipidemia: 6. Mild Fatty Liver, Bilateral Renal Cysts (Incidental): 7. Mild Hypochloremia, Mild Hyperglycemia: Discharge Instructions: Patient to follow up with primary care physician as an outpatient, return to the hospital if condition changes. Patient agreed with the plan and understood the information provided. Home Medications: Reported Medications Atorvastatin Calcium (LIPITOR) 20 Mg Tab, 1 TAB PO HS for 30 Days, #30 TAB 0 Refills 07/28/25 Lisinopril (Lisinopril) 10 Mg Tablet, 1 TAB PO DAILY for 30 Days, #30 TAB 0 Refills 07/28/25 Time spent arranging discharge: 31-60 minutes XUAN MAYBERRY MD Jul 30, 2025 12:16
--- NOTE | 2025-07-30 13:46 | NUR ---
PATIENT IS DISCHARGED. IV TAKEN OUT WITH CATHETER INTACT. EDUCATION MATERIAL PROVIDED TO PATIENT. PATIENT WILL MAKE FOLLOW UP APPOINTMENT WITH HIS SURGEON DUE TO LIVING OUT OF STATE.
--- NOTE | 2025-07-30 16:19 | HMCIMG ---
EXAM: CR Abdomen, 2 View. CLINICAL HISTORY: Check for ileus COMPARISON: 07/29/2025 FINDINGS: BOWEL: The bowel gas pattern is within normal limits. Nonobstructed bowel gas pattern. PERITONEUM/SOFT TISSUES: No free air evident. No pathologic appearing calcification. BONES: No acute osseous abnormality. IMPRESSION: The bowel gas pattern is within normal limits. No significant interval changes since the previous radiograph. /[place]
== END 2025-07-30 13:46 | disposition home or self-care (01) | DRG 394 ==
LOC: EDH 04:28 → EDHIP 08:47 → 3AH 10:25
PROVIDERS: ADMIT Internal Medicine; ATTEND Internal Medicine
DX: K91.89 Other postprocedural complications and disorders of digestive system (principal); K56.7 Ileus, unspecified; I10 Essential (primary) hypertension; K76.0 Fatty (change of) liver, not elsewhere classified; E87.8 Other disorders of electrolyte and fluid balance, not elsewhere classified; E78.00 Pure hypercholesterolemia, unspecified; N28.1 Cyst of kidney, acquired; D72.829 Elevated white blood cell count, unspecified; Y83.8 Other surgical procedures as the cause of abnormal reaction of the patient, or of later complication, without mention of misadventure at the time of the procedure; Y92.89 Other specified places as the place of occurrence of the external cause
CPT/HCPCS: 36415; 74018; 74177; 80048; 80053; 80076; 81003; 82550; 82948; 83605; 83690; 83735; 85025; 85027; 96374; 99285; G0378; J1171; J1650; J1885; J2270; J2405; J2543; J7030; J7120